=== PATIENT | female | born 1985 | race Hispanic/Latino ===

== ENCOUNTER 2018-10-26 16:44 | Observation (INO) | payer BC ==
[~2018-10-26] VITALS: Ht 160 cm; Wt 86.2 kg
[2018-10-26] MEDS ORDERED: DROSPIRENONE-E1 EAC1 PO (17:00)
--- NOTE | 2018-10-26 19:20 | NUR ---
PT ARRIVES TO FLOOR VIA WC. PT TRANSFERS TO BED INDEPENDENTLY. ADMISSION COMPLETE. PT ORIENTED TO ROOM AND POC FOR THIS SHIFT. PT UP TO BRUSH HER TEETH AND USE THE BATHROOM. PADS PROVIDED FOR ONSET OF MENSES PER PT. PT ASSISTED BACK TO BED. PT'S FRIEND AT BEDSIDE. CALL LIGHT IN REACH.
--- NOTE | 2018-10-26 23:00 | NUR ---
PT SITTING UP IN BED AWAKE, ALERT AND ORIENTED. PT RATING ABD PAIN 4/10, DENIES NAUSEA. PT MEDICATED WITH 0.5MG IV DILAUDID. PT TOOK SOME BITES OF JELLO AND SIPS OF JUICE. VOMITED 400ML SHORTLY AFTER. PT REFUSED ANTIEMETIC STATING "I FEEL BETTER NOW." IVF STARTED, IV FLUSHES EASILY, DRESSING CDI. TAKING SIPS OF WATER AND MARLO WATER WELL. PT EDUCATED ON POC AND NPO AT MIDNIGHT, VERBALIZES UNDERSTANDING. CALL LIGHT WITHIN REACH.
--- NOTE | 2018-10-27 00:16 | NUR ---
pt medicated with zofran for c/o nausea. independent to restroom. back to bed at this time. call light within reach. family at bedside.
--- NOTE | 2018-10-27 02:33 | NUR ---
PT REPORTS 4/10 PAIN. MEDICATED WITH 1MG IV DILAUDID. PT BECAME NAUSEATED SHORTLY AFTER AND VOMITED 500ML. MEDICATED WITH IV ZOFRAN. GIVEN MOUTHWASH TO RINSE MOUTH. COOL WASHCLOTH FOR FOREHEAD. FAMILY AT BEDSIDE. CALL LIGHT WITHIN REACH.
--- NOTE | 2018-10-27 04:30 | NUR ---
PT RESTING IN BED, APPEARS TO BE SLEEPING. EYES CLOSED, RESP EVEN AND UNLABORED. FAMILY ASLEEP ON COUCH. CALL LIGHT WITHIN REACH.
--- NOTE | 2018-10-27 07:32 | NUR ---
0715: REPORT RECIEVED FROM NATALIE CABALLERO. PT RESTING IN HER BED WITH NO COMPLAINTS AT THIS TIME.
--- NOTE | 2018-10-27 07:54 | NUR ---
PATIENT DID HER SURGICAL WIPE DOWN. CHANGED HER SHEETS ON HER BED. CHANGED HER GOWN. PUT HER SCD'S ON.
--- NOTE | 2018-10-27 08:22 | NUR ---
PT RESTING IN HER BED AND STATES HER ABD PAIN IS A 2/10 WHICH IS ACCEPTABLE TO HER. SHE STATES SHE HAS SOME MILD NAUSEA AND DENIES THE NEED FOR ANY MEDICATION.
--- NOTE | 2018-10-27 09:23 | NUR ---
AROUND 0840 THE OR CREW CAME AND TOOK THE PT TO THE OR.
--- NOTE | 2018-10-27 10:45 | HP ---
[facility] [address], [place] [address] Signed ADMISSION DATE: 10/26/2018 REASON FOR ADMISSION: Acute calculous cholecystitis. HISTORY OF PRESENT ILLNESS: This 33-year-old obese, woman is from [place] and is accompanied by her friend. She has had over a month of not feeling well generally speaking and worse after eating. This morning she began having severe right upper abdominal pain, which radiated into the right subscapular area. It was rated as 7/10. She presents to the emergency room here in [place], though she lives in [place], and was evaluated by Dr. Barriga. This included a gallbladder ultrasound, which shows multiple gallstones. Her liver enzymes are normal. She is admitted for further evaluation and care on the basis of acute calculous cholecystitis. PAST MEDICAL HISTORY: Significant for childbirth x3. She has no ongoing medical conditions, though she does have "ovarian cystic fibrosis." She had in 2011. She does not smoke or drink alcohol. MEDICATIONS: Her medicines include control pill daily. SOCIAL HISTORY: She is . Her works at the [employer] in [place]. They have three children who live in [place]. REVIEW OF SYSTEMS: She denies any shortness of breath or chest pain. She has no dysphagia or dysuria. Denies any hematemesis or blood per rectum. Last menstrual period early in this month. PHYSICAL EXAMINATION: GENERAL: Somewhat anxious woman accompanied by her friend. VITAL SIGNS: Temperature is 97.4, pulse 64, respirations 16, blood pressure 120/74, pulse oximetry is 100%. NECK: Shows no thyromegaly or cervical adenopathy. Trachea is midline. CHEST: Clear. HEART: Regular without murmur. ABDOMEN: Obese, but soft, easily palpated. There is marked tenderness in the right upper abdomen. I detect no mass. There is no ascites. EXTREMITIES: Show no clubbing, cyanosis, or edema. Electronically Signed By: WASHINGTON BAINS MD 10/27/18 1045 PATIENT NAME: ANKUR EAGLE HISTORY AND PHYSICAL DATE OF : [birth year] REPORT #: [id number] PHYSICIAN: WASHINGTON BAINS MD PCP: NO PRIMARY CARE PHYSICIAN REPORT IS CONFIDENTIAL AND NOT TO BE RELEASED WITHOUT AUTHORIZATION [facility] [address], [place] [address] Signed LABORATORY STUDIES: Show white count 9.6, hematocrit 40.7, platelets 281,000. Chem profile shows normal electrolytes. Creatinine 0.74, glucose 126. Liver enzymes normal. Globulin 3.8, lipase 18. Urinalysis is normal except for a small amount of bilirubin. Serum bilirubin total is 0.4. I reviewed her ultrasound images and reports confirming several small gallstones. There is no sign of marked gallbladder wall thickening. ASSESSMENT: The patient has acute cholecystitis as manifested by retrograde abdominal pain, tenderness on examination, and gallstones. I have recommended intravenous fluid resuscitation, IV antibiotic administration, and ultimately cholecystectomy preferred by laparoscopic approach. The risks of bleeding, infection, bile duct injury, need for open procedure, and other unforeseen complications were reviewed with her in detail. She understands. It is of note that she is planning to go to her daughter's club sport tournament that she has been invited to in [place] in nine days. I believe it is highly probable she will be able to continue to make the trip most likely. She is relieved by that. MD COMFORT Weiner/CEDRICK /[id number] cc: Dr. Barriga Copies: ~ Electronically Signed By: WASHINGTON BAINS MD 10/27/18 1045 PATIENT NAME: ANKUR EAGLE HISTORY AND PHYSICAL DATE OF : [birth year] REPORT #: [id number] PHYSICIAN: WASHINGTON BAINS MD PCP: NO PRIMARY CARE PHYSICIAN REPORT IS CONFIDENTIAL AND NOT TO BE RELEASED WITHOUT AUTHORIZATION
--- NOTE | 2018-10-27 10:56 | NUR ---
10/27/18 1056 DelmisTerrance ARRIVES TO THE PACU VERY SLEEPY, BUT BREATHING ON HER OWN WITH ORAL AIRWAY IN PLACE.
--- NOTE | 2018-10-27 11:54 | NUR ---
1150: PT ARRIVED BACK TO MED-SURG FROM PACU. PT WENT STRAIGHT INTO THE BR WITH THE MANUFACTURING SUPERVISOR 2ND SHIFT SHE STATES SHE NEEDS TO VOID.
--- NOTE | 2018-10-27 12:01 | NUR ---
PT INTO HER BED AND QUICKLY FELL TO SLEEP. STERI-STRIP COVERING INCISION SITES X2 WITH SCANT DRAINAGE NOTED, GAUZE AND TAPE OVER ARELI SITE WHICH IS CDI. ARELI IS DRAINING SEROUS/SANG DRAINAGE. SCD'S ARE ON AND RUNNING. CONT PULSE OX PLACED, SAT 98% AT THIS TIME. PT STATES SHE HAS NO PAIN WHILE AT REST.
--- NOTE | 2018-10-27 12:19 | NUR ---
PT STATES SHE HAS PAIN AT A 3 WHICH IS ACCEPTABLE TO HER. SHE DENIES ANY NAUSEA AND WAS GIVEN A SMALL SIP OF WATER WHICH SHE TOLERATED WELL. PT QUICKLY BACK TO SLEEP.
--- NOTE | 2018-10-27 12:44 | NUR ---
THIS MORNING PATIENT DID HER OWN SURGICAL WIPE DOWN GOT HER A NEW GOWN. CHANGED HER BED LINENS.
--- NOTE | 2018-10-27 12:52 | NUR ---
PT AWAKES TO VOICE AND STATES HER PAIN IS UNDER CONTROL. INCISION SITES APPEAR UNCHANGED, ARELI EMPTIED FOR 35 ML.
--- NOTE | 2018-10-27 14:01 | NUR ---
PT RESTING IN BED STATING HER PAIN IS CONTROLED AND SHE HAS VOIDED TWICE AND SHE DENIES ANY NAUSEA. PT GIVEN SOME JUICE AND CRACKERS AT THIS TIME.
--- NOTE | 2018-10-27 16:59 | NUR ---
PT SLEEPING, SAT 95% ON ROOM AIR.
--- NOTE | 2018-10-27 17:29 | NUR ---
Pt resting in her bed eating dinner and she continues to denie any nausea. She states her pain is a 2 which is under good control. The pt is tolerating her fluids well and due to this her iv rate was decreased to 85 ml/hr as ordered.
--- NOTE | 2018-10-27 17:35 | NUR ---
ARELI DRAIN EMPTIED FOR 25 ML. THE TWO VISIABLE INCISION SITES WITH STERISTRIPS NOTED TO HAVE A SCANT AMOUNT OF DRAINAGE AND APPEAR HEALTHY. THE DRAIN SITE DRESSING IS CDI.
--- NOTE | 2018-10-27 18:15 | NUR ---
PT TAKING PO FOOD AND FLUID AFTER HER SURGERY AND SHE CONTINUES TO DENIE ANY NAUSEA. PAIN HAS BEEN WELL CONTROLED. INCISION SITES APPEAR HEALTHY WITH ONLY SCANT DRAINAGE. ARELI HAS PUT OUT 60 ML OF SERO/SANG FLUID SINCE HER RETURN FROM SURGERY. VITAL SIGNS REMAIN STABLE.
--- NOTE | 2018-10-27 18:26 | NUR ---
Pt continues to denie any nausea and is taking po fluids well. IV site saline locked as ordered.
--- NOTE | 2018-10-27 18:37 | NUR ---
Pt ambulated in the halls for two laps and is steady on her feet and tolerated the walk well.
--- NOTE | 2018-10-27 19:55 | NUR ---
GRAIN I FARMWORKER ROUNDING NOTE. PT SITTING IN BED VISITING WITH MULTITUDE OF VISITORS IN ROOM. PT REPORTS SORE THROAT SINCE PROCEDURE EARLIER. PT DENIES FURTHER QUESTIONS OR CONCERNS AT THIS TIME. CALL LIGHT IN REACH.
--- NOTE | 2018-10-27 20:59 | NUR ---
PT UP TO BR, VOIDED, DECLINES HEPARING SC. WALKING HALLWAYS WITH FAMILY.
--- NOTE | 2018-10-28 01:34 | NUR ---
COOP WITH ASSESSMENT,ON ROOM AIR, DENIES PASSING GS, ARELI WITH SS DRAINAGE. 2 LAP SITES WITH OLD SHADOWING. ABD SOFT, TENDER, VANESSA, DENIES PASSING GAS, UP TO BR W/O ASSIST, VOIDING LARGE AMOUNT OF CLEAR YELLOW URINE
--- NOTE | 2018-10-28 04:39 | NUR ---
RESTING, NO FURTHER C/O PAIN, CALL LIGHT AT BEDSIDE, FAMILY IN ROOM
--- NOTE | 2018-10-28 06:02 | NUR ---
PT ABD LAP SITE WITH OLD DRAINAGE, ARELI PATENT, DRAINING SS DRAINAGAGE. PT STATES NOT PASSING GAS YET. ABD TENDER. WAS MEDICATED WITH NORCO 7.5MG PO X1. AMBULATED HALLWAYS SEVERAL TIMES ACOMPANIED BY FAMILY. TOLERATING FLUIDS AND DIET WELL. SL PATENT. CALL LIGHT AT BEDSIDE
--- NOTE | 2018-10-28 07:20 | NUR ---
assumed care, report from Salma RN. pt eyes closed, rrr. did not disturb. call light in reach -
--- NOTE | 2018-10-28 10:30 | NUR ---
TO PT RM, TEACHING ON ARELI DRAIN AT BEDSIDE. SCANT AMT OF SEROUS DRAINAGE TO ARLEI. PT NERVOUS ABOUT GOING HOME WITH IT. REASSURED HER THAT IT MAY NOT AND DEMONSTRATED THE EMPTYING OF DRAIN. PO PAIN MED GIVEN EARLIER AND PT TOLLERATING MEAL AT THIS TIME. DENIES NEEDS.
--- NOTE | 2018-10-28 11:07 | NUR ---
MEDICATIONS ADMOINSITERED. PT REPORTS PAIN 07/15. PT UP TO CHAIR, CALL LIGHT IN REACH. WARM BLANKET PROVIDED.
[2018-10-28] MEDS ORDERED: TYLENOL325 MG PO (12:01)
[2018-10-28] MEDS ORDERED: IBUPROFEN600 MG PO (12:01)
[2018-10-28] MEDS ORDERED: OXYCODON-ACETA1 EAC2 PO (12:01)
--- NOTE | 2018-10-28 12:06 | OR ---
[facility] [address], [place] [address] Signed DATE OF OPERATION: 10/27/2018 SURGEON: Washington Bains MD PREOPERATIVE DIAGNOSES: 1. Acute and chronic calculous cholecystitis. 2. Obesity. POSTOPERATIVE DIAGNOSIS: Severe cholecystitis with partial gangrene of gallbladder. PROCEDURES PERFORMED: 1. Laparoscopic cholecystectomy with intraoperative cholangiogram, prolonged, complicated, difficult. 2. Surgeon-directed fluoroscopy. ANESTHESIA: General endotracheal, Washington Briggs CRNA, and local 10 mL of 0.25% Marcaine with epinephrine. INDICATION: This 33-year-old obese woman has had vague abdominal pain and feeling of malaise for over a month. In the past few days, she has had increasing symptoms and yesterday had severe pain in the right subcostal and right subscapular area. She presented to the emergency room where she was thoroughly evaluated by Dr. Tyree Barriga where she was found to have normal white count and liver enzymes, but marked tenderness in the right upper abdomen. A gallbladder ultrasound showed multiple gallstones. She was admitted, given fluid resuscitation, intravenous antibiotics, parenteral pain medication and so forth and is now prepared for cholecystectomy for acute calculous cholecystitis. She understands the risk of bleeding, infection, bile duct injury need for open procedure and other unforeseen complications and wished to proceed. FINDINGS: Somewhat to my surprise, she had markedly advanced cholecystitis despite having a normal white count, and so on. The gallbladder was gangrenous in its appearance in the fundus and midportion, though the infundibulum itself was in good condition other than severe inflammation. There was a pericholecystic lymph node that was enlarged. Cholecystectomy was performed with all due care and caution. Cholangiogram was normal. The cystic duct was large enough, it could not be secured with clips alone and Electronically Signed By: WASHINGTON BAINS MD 10/28/18 1206 PATIENT NAME: ANKUR EAGLE OPERATIVE REPORT DATE OF : [birth year] REPORT #: [id number] PHYSICIAN: WASHINGTON BAINS MD PCP: NO PRIMARY CARE PHYSICIAN REPORT IS CONFIDENTIAL AND NOT TO BE RELEASED WITHOUT AUTHORIZATION [facility] [address], [place] [address] Signed therefore, an Endoloop was used to secure as well. Procedure risk, prolonged, complicated, and difficult on the basis of these factors lasting three times longer than would be expected. DESCRIPTION OF PROCEDURE: The patient was brought to the operating room, given a general endotracheal anesthetic. Various antiemetics administered given her propensity for nausea. After satisfactory general endotracheal anesthesia, the abdomen was prepared with a chlorhexidine solution and draped sterilely. An infraumbilical incision was made and using an open Hi cannula technique, pneumoperitoneum was achieved to a level of 14 mmHg of carbon dioxide gas. Intraabdominal inspection was undertaken showing the gallbladder to be violaceous and dark in color, consistent with severe inflammation possible gangrene. The liver had mild fatty infiltration. Three additional trocars were placed in usual configuration the subxiphoid, right midclavicular, and right anterior axillary line. The gallbladder was too tense and distended to be grasped effectively and therefore, it was decompressed with a trocar showing moderately green gallbladder fluid. The gallbladder was then able to be retracted cephalad and omental adhesions were taken down with blunt and electrocautery dissection. The infundibulum looked less troubled than the major portion of the gallbladder. The gallbladder was retracted laterally and using blunt and electrocautery dissection, the triangle of Calot was dissected free. An enlarged pericholecystic lymph node was noted. In due course, the cystic duct was well identified. An area of bleeding in the bed of the gallbladder were secured with clips and later with some electrocautery. Once the critical view was ascertained, a plan for application of clip to the gallbladder cystic duct junction was noted. However, the area was too thick to allow for application of a clip affectively. On that basis, the choledochotomy was made without complete closure of the gallbladder cystic duct junction and an Sargent catheter and clamp passed into the cystic duct. Using surgeon-directed fluoroscopy, intraoperative cholangiography was undertaken showing free flow of contrast in biliary tree with prompt emptying into the duodenum. The cystic duct was generous in length and there was no sign of biliary anomaly or other problem. The catheter was removed and the cystic duct more fully evaluated. It simply would not accommodate the cystic duct given its diameter and therefore, the cystic duct was transected close to the gallbladder cystic duct junction. The end of the gallbladder was secured with an Endoloop so as to avoid spillage of stones. Another PDS Endoloop was obtained and the cystic duct remnant grasped and the Endoloop applied. Good security of the cystic duct was then noted. Two additional clips were applied to the cystic duct, though they did not reach completely across it. Electronically Signed By: WASHINGTON BAINS MD 10/28/18 1206 PATIENT NAME: ANKUR EAGLE OPERATIVE REPORT DATE OF : [birth year] REPORT #: [id number] PHYSICIAN: WASHINGTON BAINS MD PCP: NO PRIMARY CARE PHYSICIAN REPORT IS CONFIDENTIAL AND NOT TO BE RELEASED WITHOUT AUTHORIZATION [facility] [address] [place], [place] [address] Signed Irrigation was undertaken. There was no sign of bile leak or bleeding. The gallbladder was then dissected free in a retrograde fashion using electrocautery. The gallbladder was placed in an endobag and extracted through the infraumbilical port site, opened on the back table and found to have multiple multifaceted yellow gallstones. The mucosa did not appear gangrenous, but markedly inflamed. Irrigation was undertaken in subhepatic space. There was no sign of bile leak, bleeding or other problems. Given the extent of dissection and so forth through a right-sided trocar site, a 7 mm flat Ernie drain was placed in the subhepatic space and secured to the skin with nylon suture. The trocars were removed under direct visualization without sign of bleeding. Plans were made for closure. The infraumbilical fascial incision was reapproximated with interrupted 0 Vicryl suture. All wounds were copiously irrigated and injected with Marcaine local anesthetic. The skin was then closed with interrupted 3-0 Vicryl. Steri-Strips were applied. The patient was ultimately extubated and transferred to recovery room in good condition having suffered no complications. Sponge, needle, and instruments counts reported as correct x3. MD COMFORT Weiner/CEDRICK /[id number] Copies: ~ Electronically Signed By: WASHINGTON BAINS MD 10/28/18 1206 PATIENT NAME: ANKUR EAGLE OPERATIVE REPORT DATE OF : [birth year] REPORT #: [id number] PHYSICIAN: WASHINGTON BAINS MD PCP: NO PRIMARY CARE PHYSICIAN REPORT IS CONFIDENTIAL AND NOT TO BE RELEASED WITHOUT AUTHORIZATION
--- NOTE | 2018-10-30 14:13 | DS ---
[facility] [address], [place] [address] Signed ADMISSION DATE: 10/26/2018 DISCHARGE DATE: 10/28/2018 REASON FOR ADMISSION: This 33-year-old obese woman is from [place] and is accompanied by her friend. She has had over a month of not feeling well, generally speaking. She was concerned she may be and did two tests at home, which were negative. The morning of admission, she began having severe right subcostal pain, which radiated into the right subscapular area. It is rated 7/10. She presented to the emergency room where she was evaluated by Dr. Bolton. This included a gallbladder ultrasound, which showed multiple gallstones and liver enzymes were normal. White count normal. Urinalysis normal and beta hCG negative. She was admitted for further evaluation and care on the basis of high probability for acute calculous cholecystitis. PERTINENT PHYSICAL EXAMINATION: GENERAL: Showed an obese woman, who did not look systemically toxic. HEENT: Mucous membranes were slightly dry. Trachea is midline. CHEST: Clear. HEART: Regular without murmur. ABDOMEN: Obese, but soft, with tenderness in the right upper abdomen. There is no palpable mass and no ascites. EXTREMITIES: Showed no clubbing, cyanosis, or edema. LABORATORY DATA: Liver enzymes and white count are normal. Beta hCG negative. Urinalysis normal. Review of her ultrasound showed multiple gallstones. There was no sign of gallbladder wall thickening per se. HOSPITAL COURSE: She was admitted, given fluid resuscitation, intravenous antibiotic Ancef, sequential compression device stockings, and plans made for cholecystectomy when the patient resuscitated. The following day, she underwent laparoscopic cholecystectomy with intraoperative cholangiogram. She was found to have a partially gangrenous apex of the gallbladder. There were multiple yellow multifaceted stones. She had mild fatty infiltration of liver. Cholangiogram was normal. Given the extent of dissection and so forth, a drain was placed at the time of operation. Her postoperative course was rather unremarkable. She began tolerating regular diet promptly after operation. The drain was noted to be serosanguineous fluid and was removed without problem. There was no sign of bile leak. Electronically Signed By: WASHINGTON BAINS MD 10/30/18 1413 PATIENT NAME: ANKUR EAGLE DISCHARGE SUMMARY DATE OF : [birth year] REPORT #: [id number] PHYSICIAN: WASHINGTON BAINS MD PCP: NO PRIMARY CARE PHYSICIAN REPORT IS CONFIDENTIAL AND NOT TO BE RELEASED WITHOUT AUTHORIZATION [facility] [address] [place] [id number] Signed The patient was discharged home to return to see me in approximately a month or so. DISCHARGE MEDICATIONS: 1. Motrin 600 mg p.o. q.6 hours p.r.n. pain, #30. 2. Tylenol plain 650 mg p.o. q.6 hours p.r.n. pain, #30. 3. Percocet 7.5/325 1-2 p.o. q.6 hours p.r.n. pain, #5. 4. She will resume her usual control pill. DISCHARGE DIAGNOSES: 1. Acute calculous cholecystitis. 2. Morbid obesity. 3. control pill use. Washington Bains MD JM/MODL /[id number] cc: Tyree Bolton MD Copies: TYREE BOLTON MD ~ Electronically Signed By: WASHINGTON BAINS MD 10/30/18 1413 PATIENT NAME: ANKUR EAGLE DISCHARGE SUMMARY DATE OF : [birth year] REPORT #: [id number] PHYSICIAN: WASHINGTON BAINS MD PCP: NO PRIMARY CARE PHYSICIAN REPORT IS CONFIDENTIAL AND NOT TO BE RELEASED WITHOUT AUTHORIZATION
== END 2018-10-28 13:50 | disposition home or self-care (01) ==
LOC: ED 16:44 → MS 16:46
PROVIDERS: ADMIT Surgery
PROC: BF101ZZ Fluoroscopy of Bile Ducts using Low Osmolar Contrast (ICD-10-PCS; 2018-10-27)
PROC: 0FT44ZZ Resection of Gallbladder, Percutaneous Endoscopic Approach (ICD-10-PCS; principal; 2018-10-27 08:07)
DX: K80.12 Calculus of gallbladder with acute and chronic cholecystitis without obstruction (principal); K76.0 Fatty (change of) liver, not elsewhere classified; E66.9 Obesity, unspecified; N83.8 Other noninflammatory disorders of ovary, fallopian tube and broad ligament; Z79.3 Long term (current) use of hormonal contraceptives; Z68.33 Body mass index [BMI] 33.0-33.9, adult
CPT/HCPCS: 00790; 74300; 76705; 80053; 81001; 83690; 84703; 85025; 96361; 96372; 96374; 96375; 96376; 99284-25; G0378; J0131; J0330; J0690; J1100; J1170; J1200; J1644; J1885; J2250; J2270; J2405; J2550; J2704; J2765; J3010; J7030; J7120; Q9967